=== PATIENT | female | born 1990 | race Caucasian/White ===

== ENCOUNTER 2019-12-13 04:15 | Inpatient (IN) | payer OTHER ==
[~2019-12-13] VITALS: Ht 167.6 cm; Wt 92.5 kg
[2019-12-13] MEDS ORDERED: PRENATAL TABLE1 EAC1 PO (05:07)
[2019-12-13] MEDS ORDERED: ZYRTEC10 M3 PO (05:09)
== END 2019-12-15 14:28 | disposition home or self-care (01) | DRG 807 ==
LOC: LDR 04:15 → OB/GYN 16:42
PROVIDERS: ADMIT Specialist; ATTEND Specialist
PROC: 10E0XZZ Delivery of Products of Conception, External Approach (ICD-10-PCS; principal; 2019-12-13)
PROC: 0W8NXZZ Division of Female Perineum, External Approach (ICD-10-PCS; 2019-12-13)
PROC: 4A1HXFZ Monitoring of Products of Conception, Cardiac Rhythm, External Approach (ICD-10-PCS; 2019-12-13)
DX: O24.12 Pre-existing type 2 diabetes mellitus, in childbirth (principal); Z37.0 Single live birth; E11.9 Type 2 diabetes mellitus without complications; Z3A.38 38 weeks gestation of pregnancy